=== PATIENT | female | born 1965 | race Two or more races ===

== ENCOUNTER 2017-09-10 09:28 | Outpatient (CLI) | payer OTHER ==
[~2017-09-10 09:28] MED LIST: ATENOLOL50 MG; LASIX20 MG
== END 2017-09-10 13:21 | disposition home or self-care (01) ==
LOC: MRI 09:28
DX: S43.421A Sprain of right rotator cuff capsule, initial encounter (principal); M25.511 Pain in right shoulder; M75.41 Impingement syndrome of right shoulder
CPT/HCPCS: 73221

== ENCOUNTER 2018-09-09 08:54 | Outpatient (CLI) | payer OTHER | END 2018-09-09 09:31 | disposition home or self-care (01) | LOC: RAD 08:54 | DX: R07.89 Other chest pain (principal) ==

== ENCOUNTER → 2018-10-26 | Outpatient (CLI) | payer OTHER | END | disposition home or self-care (01) | LOC: MAMO-SONO 09:52 | DX: Z12.31 Encounter for screening mammogram for malignant neoplasm of breast (principal) ==

== ENCOUNTER → 2018-10-27 | Outpatient (CLI) | payer OTHER | END | disposition home or self-care (01) | LOC: NUCLEAR 09:46 | DX: M81.0 Age-related osteoporosis without current pathological fracture (principal) ==

== ENCOUNTER 2020-02-13 13:00 | Outpatient (CLI) | payer OTHER | END 2020-02-13 15:00 | disposition home or self-care (01) | LOC: PPH VACUNA 13:00 | DX: Z23 Encounter for immunization (principal) ==

== ENCOUNTER 2020-05-14 13:33 | Outpatient (CLI) | payer OTHER | END 2020-05-14 18:00 | disposition home or self-care (01) | LOC: PPH VACUNA 13:33 | DX: Z23 Encounter for immunization (principal) ==

== ENCOUNTER 2021-02-24 08:00 | Outpatient (CLI) | payer OTHER | END 2021-02-24 08:30 | disposition home or self-care (01) | LOC: PPH VACUNA 08:00 | PROVIDERS: ATTEND Emergency Medicine Pediatric Emergency Medicine | DX: Z23 Encounter for immunization (principal) ==

== ENCOUNTER 2021-10-24 12:00 | Outpatient (CLI) | payer OTHER | END 2021-10-24 12:10 | disposition home or self-care (01) | LOC: PPH VACUNA 12:00 | PROVIDERS: ATTEND Emergency Medicine Pediatric Emergency Medicine | DX: Z23 Encounter for immunization (principal) ==

== ENCOUNTER 2022-12-16 09:16 | Outpatient (CLI) | payer OTHER | END 2022-12-16 09:25 | disposition home or self-care (01) | LOC: NUCLEAR 09:16 | PROVIDERS: ATTEND Internal Medicine Sports Medicine | DX: M85.80 Other specified disorders of bone density and structure, unspecified site (principal) ==

== ENCOUNTER 2022-12-16 10:13 | Outpatient (CLI) | payer OTHER | END 2022-12-16 10:22 | disposition home or self-care (01) | LOC: MAMO-SONO 10:13 | PROVIDERS: ATTEND Internal Medicine Sports Medicine | DX: Z12.31 Encounter for screening mammogram for malignant neoplasm of breast (principal) ==

== ENCOUNTER 2025-01-09 06:54 | Day surgery (SDC) | payer OTHER ==
[2025-01-02 08:12] VITALS: BP 149/61
[2025-01-02 08:19] LABS: URINE APPEARANCE Clear; URINE BILIRRUBIN Negative (NEGATIVE); URINE BLOOD Negative; URINE COLOR Yellow; URINE GLUCOSE Negative (NEGATIVE); URINE KETONE Negative (NEGATIVE); URINE LEUKOCYTE Negative; URINE NITRATE Negative; URINE PROTEIN Negative (NEGATIVE); URINE UROBILINOGEN 0.2 E.U./dl
[2025-01-02 08:24] LABS: URINE BACTERIA 576.0 uL (0.0-1933); URINE EPITHELIAL CELLS 9.0 uL (0.0-38.8); URINE RBC 10.7 uL (0.0-20.8); URINE WBC 8.4 uL (0.0-23.2)
[2025-01-02 08:37] LABS: URINE CAST 0.14 uL (0.0-1.40)
[2025-01-02 08:44] LABS: BASO % 0.8 % (0.1-1.2); EOS # 0.11 (0.04-0.54); EOS % 1.7 % (0.7-7.0); LYMPH # 1.49 (1.18-3.74); LYMPH % 23.1 % (19.3-53.1); MEAN PLATELET VOLUME 9.60 fl (9.4-12.4); MONO # 0.42 (0.24-0.82); MONO % 6.5 % (4.7-12.5); NEUT # 4.35 (1.56-6.13); NEUT % 67.6 % (34.0-71.1); RED CELL DISTRIBUTION WIDTH 14.9 % (11.6-14.4)
[2025-01-02 09:09] LABS: ALT/SGPT 47.0 U/L (12-78); AST/SGOT 19.0 U/L (15-37); BILIRUBIN TOTAL 0.61 mg/dL (0.3-1.2); BUN CREA RATIO 32.0 (7.0-25.0); CREATININE SERUM 0.6 mg/dL (0.55-1.02); GFR 101.97; GLOBULINA 3.0 G/DL (2.4-3.5); GLUCOSE FASTING 114.0 mg/dL (65-100); OSMOLALITY SERUM 284.0 MOSM/KG (275-295)
[2025-01-02 09:12] LABS: INR 0.99
[~2025-01-09] VITALS: Ht 154.9 cm; Wt 91.2 kg
[~2025-01-09 06:54] MED LIST changes: +LOSARTAN-HCTZ1 EAC1 PO; +TOPROL XL25 M1
[2025-01-09] MEDS ORDERED: CEFAZOLIN SODIUM 1,000 MG VIAL IV ONE (11:30)
[2025-01-09] MEDS ORDERED: KETOROLAC TROMETHAMINE 30 MG VIAL IU STA (14:59)
[2025-01-09] MEDS ORDERED: KETOROLAC TROMETHAMINE 30 MG VIAL IM STA (14:59)
[2025-01-09] MEDS ORDERED: NABUMETONE750 MG PO (15:01)
[2025-01-09] MEDS ORDERED: PERCOCET 5-3251 EACH PO (15:01)
== END 2025-01-09 17:30 | disposition home or self-care (01) ==
LOC: CIR.AMB 06:54
PROVIDERS: ATTEND Orthopaedic Surgery
DX: S83.252A Bucket-handle tear of lateral meniscus, current injury, left knee, initial encounter (principal); M17.12 Unilateral primary osteoarthritis, left knee; M67.52 Plica syndrome, left knee; M22.42 Chondromalacia patellae, left knee